=== PATIENT | male | born 1955 | race Caucasian/White ===

== ENCOUNTER 2016-10-29 07:41 | Emergency (ER) | payer BC ==
--- NOTE | 2016-10-29 08:17 | UC ---
Back Pain HPI - HPI Summary HPI Summary: LOW BACK STRAIN ABOUT 6 WEEKS AGO FROM USING A CHAINSAW. HAS BEEN STRETCHING AND DOING EXERCISES WITH IMPROVEMENT. YESTERDAY WAS CARRYING A HEAVY BAG OF VEGETABLES WHEN HE STEPPED INTO A POTHOLE AND HIS BODY TWISTED. LAST NIGHT BACK PAIN WAS MUCH WORSE. IS RADIATING TO FRONT. NO NUMBNESS/TINGLING OR SADDLE ANESTHESIA. - History of Current Complaint Chief Complaint: UCBackPain Stated Complaint: BACK PAIN Time Seen by Provider: 10/29/16 08:07 Hx Obtained From: Patient Onset/Duration: Gradual Onset, Lasting Weeks, Worse Since - YESTERDAY Severity Initially: Moderate Severity Currently: Moderate Pain Intensity: 2 - 8/10 WITH TWISTING MOTION Pain Scale Used: 0-10 Numeric Back Pain: Is Discrete @ - MID/LOW BACK Character: Sharp, Aching Aggravating: Movement Alleviating: Rest, Position Associated Signs And Symptoms: Negative: Weakness, Numbness, Tingling, Bladder Incontinence, Bowel Incontinence - Allergies/Home Medications Allergies/Adverse Reactions: Allergies Allergy/AdvReac Type Severity Reaction Status Date / Time Shellfish Allergy Allergy Abdominal Verified 10/29/16 07:44 Pain Home Medications: Home Medications Aspirin [Aspirin 81 MG TAB] 1 tab PO DAILY 10/29/16 [History Confirmed 10/29/16] Losartan TAB* [Cozaar TAB*] 100 mg PO DAILY 10/29/16 [History Confirmed 10/29/16 ] Venlafaxine ER (NF) [Effexor ER (NF)] 150 mg PO BID 10/29/16 [History Confirmed 10/29/16] clonazePAM TAB(*) [Klonopin TAB(*)] 1 tab PO BID 10/29/16 [History Confirmed 10/07] metFORMIN* [Glucophage 500 MG TAB *] 1 tab PO BID 10/29/16 [History Confirmed ] PMH/Surg Hx/FS Hx/Imm Hx Endocrine History: Diabetes Cardiovascular History: Hypertension Psychological History: Anxiety - Surgical History Surgical History: Yes Surgery Procedure, Year, and Place: appendix - Family History Known Family History: Positive: Hypertension, Diabetes - Social History Alcohol Use: Rare Substance Use Type: None Smoking Status (MU): Never Smoked Tobacco Review of Systems Constitutional: Negative Skin: Negative Respiratory: Negative Cardiovascular: Negative Gastrointestinal: Negative Genitourinary: Negative Musculoskeletal: Decreased ROM, Myalgia All Other Systems Reviewed And Are Negative: Yes Physical Exam Triage Information Reviewed: Yes Appearance: Well-Appearing, Well-Nourished, Pain Distress - MILD Vital Signs: Initial Vital Signs Temp 97.7 F 10/29/16 07:49 Pulse 74 10/29/16 07:49 Resp 16 10/29/16 07:49 BP 151/94 10/29/16 07:49 Pulse Ox 97 10/29/16 07:49 Vital Signs Reviewed: Yes Eyes: Positive: Conjunctiva Clear ENT: Positive: Hearing grossly normal Neck: Positive: Supple Respiratory: Positive: No respiratory distress, No accessory muscle use Cardiovascular: Positive: Pulses Normal Abdomen Description: Positive: Soft Musculoskeletal: Positive: No Edema, ROM Limited @ - BACK, Other: - NOT TENDER OVER BACK MUSCLES. NEG STRAIGHT LEG RAISE Neurological: Positive: Alert Psychological: Positive: Age Appropriate Behavior Skin: Negative: rashes Diagnostics - Radiology THORACIC SPINE XRAY Xray Interpretation: Positive (See Comments) - MILD DEGENERATIVE DISC DISEASE Radiology Interpretation Completed By: Radiologist LUMBARSACRAL SPINE XRAYS Xray Interpretation: Positive (See Comments) - MILD TO MODERATE DIFFUSE DEGENERATIVE DISC DISEASE Radiology Interpretation Completed By: Radiologist Back Pain Course/Dx - Differential Dx/Diagnosis Provider Diagnoses: ACUTE LOW BACK STRAIN/DDD Discharge - Discharge Plan Condition: Stable Disposition: HOME Prescriptions: Cyclobenzaprine TAB* [Flexeril TAB*] 10 mg PO BID PRN #30 tab PRN Reason: Pain Hydrocodone-Acetaminophen [Lorcet 5-325 mg] 1 tab PO QID PRN #20 tab MDD 4 PRN Reason: Pain Naproxen [Naproxen EC] 500 mg PO BID PRN #30 tab PRN Reason: Pain predniSONE TAB* [Deltasone TAB*] 40 mg PO DAILY #10 tab Patient Education Materials: Low Back Strain (ED) Referrals: Karthik FIELDS,Sergio Nicole [Primary Care Provider] - If Needed Additional Instructions: BE SURE TO GO THROUGH SLOW RANGE OF MOTION AND STRETCHING EXERCISES DAILY YOU ARE ABLE TO PREVENT STIFFENING UP AND MAKING THE DISCOMFORT WORSE. BE AWARE THAT COADMINISTRATION OF FLEXERIL AND EFFEXOR CAN INCREASE YOUR RISK OF SEROTONIN SYNDROME. IF YOU DEVELOP AGITATION, SWEATS, TREMOR, MUSCLE STIFFNESS GO DIRECTLY TO THE ER. FOLLOW-UP WITH YOUR PCP IF SYMPTOMS DO NOT IMPROVE EXPECTED.
--- NOTE | 2016-10-29 09:02 | RAD ---
INDICATION: Low back pain. COMPARISON: There are no prior studies available for comparison. TECHNIQUE: 5 views of the lumbar spine were obtained including lateral, oblique, AP and a coned-down lateral view of the lumbar sacral junction. FINDINGS: The vertebra are in normal alignment. No fracture is seen. There is mild to moderate diffuse disc space narrowing and endplate spurring throughout the lumbar spine consistent with mild to moderate diffuse degenerative disc disease. IMPRESSION: MILD TO MODERATE DIFFUSE DEGENERATIVE DISC DISEASE.
--- NOTE | 2016-10-29 09:04 | RAD ---
INDICATION: Back pain. COMPARISON: Comparison is made with a prior chest x-ray study from December 13, 2012. TECHNIQUE: AP and lateral films of the dorsal spine were obtained. FINDINGS: The vertebra are in normal alignment. No fracture is seen. There is mild diffuse degenerative disc disease. IMPRESSION: MILD DEGENERATIVE DISC DISEASE.
[2016-10-29 09:50] VITALS: BP 153/83
== END 2016-10-29 10:00 | disposition home or self-care (01) ==
LOC: UCEAST 07:41
DX: S39.012A Strain of muscle, fascia and tendon of lower back, initial encounter (principal); X50.0XXA Overexertion from strenuous movement or load, initial encounter; Y93.89 Activity, other specified; Y92.9 Unspecified place or not applicable; M51.37 Other intervertebral disc degeneration, lumbosacral region; M51.34 Other intervertebral disc degeneration, thoracic region; E11.9 Type 2 diabetes mellitus without complications; Z79.84 Long term (current) use of oral hypoglycemic drugs; I10 Essential (primary) hypertension; F41.9 Anxiety disorder, unspecified; Z79.82 Long term (current) use of aspirin; Z91.013 Allergy to seafood
CPT/HCPCS: 72070; 72110; 99212; G0463

== ENCOUNTER 2018-09-14 16:41 | Emergency (ER) | payer BC ==
[2018-09-14 16:50] VITALS: BP 135/82
--- NOTE | 2018-09-14 16:54 | UC ---
Hand/Wrist HPI - HPI Summary HPI Summary: 63 yo male presents with RIGHT 5th digit nodule. He tells me that over the last week he has been doing a lot of work with a sledgehammer and various tools. 2 days ago noticed a nodule to his right 5th digit volar aspect. He is concerned this is a cyst. No pain. Finger does not get stuck in flexion or extension. No specific injury. He is right handed. - History Of Current Complaint Chief Complaint: UCUpperExtremity Stated Complaint: HAND COMPLAINT Time Seen by Provider: 09/14/18 16:53 Hx Obtained From: Patient Onset/Duration: Gradual Onset Severity Initially: Mild Severity Currently: Mild Pain Intensity: 1 Pain Scale Used: 0-10 Numeric - Allergies/Home Medications Allergies/Adverse Reactions: Allergies Allergy/AdvReac Type Severity Reaction Status Date / Time shellfish derived Allergy Abdominal Verified 09/14/18 16:50 Pain PMH/Surg Hx/FS Hx/Imm Hx Endocrine History: Diabetes Cardiovascular History: Hypertension Psychological History: Anxiety, Depression - Surgical History Surgical History: Yes Surgery Procedure, Year, and Place: appendix - Family History Known Family History: Positive: Hypertension, Diabetes - Social History Occupation: Employed Full-time Lives: With Family Alcohol Use: Rare Substance Use Type: None Smoking Status (MU): Never Smoked Tobacco Review of Systems All Other Systems Reviewed And Are Negative: Yes Constitutional: Positive: Negative Skin: Positive: Negative Respiratory: Positive: Negative Cardiovascular: Positive: Negative Musculoskeletal: Positive: Other: - Right 5th digit nodule Neurological: Positive: Negative Psychological: Positive: Negative Physical Exam - Summary Physical Exam Summary: GENERAL: NAD. WDWN. No pain distress. SKIN: No rashes, sores, lesions, or open wounds. CHEST: No accessory muscle use. Breathing comfortably and in no distress. CV: Pulses intact radial and ulnar. Cap refill <2seconds MSK: RIGHT 5th digit: Volar aspect at PIP there is a 2-3mm firm nodule that moves with finger flexion. FROM at MCP, PIP, and DIP. 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 NEURO: Alert. Sensations intact hand and all fingers. PSYCH: Age appropriate behavior. Triage Information Reviewed: Yes Vital Signs: Initial Vital Signs Temp 97.8 F 09/14/18 16:45 Pulse 79 09/14/18 16:45 Resp 12 07/25/19 16:45 BP 135/82 09/14/18 16:45 Pulse Ox 97 09/14/18 16:45 Vital Signs Reviewed: Yes Hand/Wrist Course/Dx - Course Course Of Treatment: Suspect tendon nodule from overuse vs ganglion cyst. Pt was placed in a finger splint for comfort and advised to rest his finger. F/u with Orthopedics for further treatment if the area does not improve - Differential Dx/Diagnosis Provider Diagnosis: Nodule of finger of left hand Discharge - Sign-Out/Discharge Documenting (check all that apply): Patient Departure All imaging exams completed and their final reports reviewed: No Studies - Discharge Plan Condition: Stable Disposition: HOME Patient Education Materials: Ganglion Cysts (ED), Trigger Finger (ED) Referrals: Sergio Angeles MD [Primary Care Provider] - Richie Alvarenga MD [Medical Doctor] - 2 Weeks Additional Instructions: If you develop a fever, shortness of breath, chest pain, new or worsening symptoms - please call your PCP or go to the ED immediately. Use the finger splint and rest your finger as much as possible. I recommend that you call Orthopedics at the number below to schedule an appointment if this does not improve - Billing Disposition and Condition Condition: STABLE Disposition: Home - Attestation Statements Provider Attestation: Per institutional requirements, I have reviewed the chart, however, I was not consulted specifically or made aware of this patient by the midlevel provider. I did not personally evaluate, interact with , or disposition this patient.
== END 2018-09-14 17:19 | disposition home or self-care (01) ==
LOC: UCEAST 16:41
DX: R22.32 Localized swelling, mass and lump, left upper limb (principal); E11.9 Type 2 diabetes mellitus without complications; I10 Essential (primary) hypertension; F41.9 Anxiety disorder, unspecified; F32.9 Major depressive disorder, single episode, unspecified
CPT/HCPCS: 99211; G0463

== ENCOUNTER 2018-10-05 11:47 | Day surgery (SDC) | payer BC ==
[~2018-10-05 11:47] MED LIST: Buffered Lidocaine 1% SYRIN* 1 ML/SYRINGE INTRADERM ONE; Lactated Ringers 1000 ML Bag* 1,000 ML IV SCH
[2018-10-05] MEDS ORDERED: Bupivacaine 0.25% SDV PF* 10 ML VIAL INJ ONE (12:03)
[2018-10-05 13:14] VITALS: BP 136/82
--- NOTE | 2018-10-05 14:44 | OP ---
DATE OF OPERATION: 10/05/18 [facility] DATE OF : 57 SURGEON: Richie Alvarenga MD GOLD LEAF PRINTER: None. ANESTHESIOLOGIST: None. ANESTHESIA: Local only with digital block performed with 0.25% plain Marcaine. PRE-OP DIAGNOSIS: Right small finger soft tissue mass on the palmar aspect of the proximal interphalangeal joint. POST-OP DIAGNOSIS: Right small finger soft tissue mass on the palmar aspect of the proximal interphalangeal joint. OPERATIVE PROCEDURE: Excision of right small finger soft tissue mass. INDICATIONS: Efraín has the mass. It is right in the palmar PIP crease. It is very symptomatic. It is firm. It is nodular. We talked about risks and benefits. He wanted to have it excised. ESTIMATED BLOOD LOSS: 2 mL. COMPLICATIONS: None. FINDINGS: See above and below. DESCRIPTION OF PROCEDURE: Efraín was seen in the preoperative holding area. The correct site, side, and procedure were identified. We came back to the operating room. Digital block was performed with 0.25% plain Marcaine right at the MP flexion crease area. The arm was then prepped and draped in the usual fashion and a time-out was performed. I placed a finger tourniquet on the finger. I then raised a radially based V- shaped flap off the PIP joint. Dissection was carried down. A very firm nodule was encountered. I raised this clean off the tendon sheath with the 15 blade. It was a very dense fibrous nodule. It came out very cleanly. Everything was looking very good. I checked to make sure nothing else was present, but everything was looking very good, so we irrigated out the wound. Skin was closed with 4-0 nylon suture. Soft dressing was applied and he was taken to the recovery room in stable condition. [id number]/[facility] #: [id number] MTDD
== END 2018-10-05 13:25 | disposition home or self-care (01) ==
LOC: OREAST 11:47
PROVIDERS: ATTEND Orthopaedic Surgery Hand Surgery
DX: R22.31 Localized swelling, mass and lump, right upper limb (principal); I10 Essential (primary) hypertension; E78.00 Pure hypercholesterolemia, unspecified; E11.9 Type 2 diabetes mellitus without complications; Z79.84 Long term (current) use of oral hypoglycemic drugs; F41.9 Anxiety disorder, unspecified
CPT/HCPCS: 88304; J3490